=== PATIENT | male | born 1995 | race Caucasian/White ===

== ENCOUNTER 2016-09-01 22:15 | Emergency (ER) | payer SELFPAY ==
--- NOTE | 2016-09-01 22:33 | ED Physician Documentation ---
General Adult - HISTORIAN Historian: patient, other (police) - HPI Stated Complaint: blood draw Chief Complaint: General Adult Additional Information: Here for legal blood draw. Refuses further medical attention. - ROS CONST: no problems - PAST HX Past History: none (refuses ) - SOCIAL HX Smoking History: cigarettes - FAMILY HX Family History: No (unknown) - REVIEWED ASSESSMENTS Nursing Assessment Reviewed: Yes Vitals Reviewed: Yes General Adult Physical Exam - PHYSICAL EXAM GENERAL APPEARANCE: no distress EENT: ENT inspection normal NECK: normal inspection RESPIRATORY: no resp distress BACK: other (erect posture) SKIN: normal color NEURO: other (sitting on stretcher, speech appropriate) Discharge Clincal Impression: Health examination of prisoner Referrals: Primary Doctor,No [Primary Care Provider] - 2 Days Condition: Good Disposition: 01 HOME, SELF-CARE Decision to Admit: NO Decision Time: 22:34
== END 2016-09-01 22:49 | disposition left against medical advice (07) ==
LOC: ED 22:15
DX: Z02.83 Encounter for blood-alcohol and blood-drug test (principal)
CPT/HCPCS: 99282